=== PATIENT | male | born 1945 | race Caucasian/White ===

== ENCOUNTER 2017-07-04 22:16 | Emergency (ER) | payer BC, MEDICARE ==
[~2017-07-04] VITALS: Ht 185.4 cm; Wt 104.3 kg
[2017-07-04 22:17] VITALS: BP 145/72
--- NOTE | 2017-07-04 22:23 | PCM.EKG ---
[facility] Test Date: 2017-07-04 Test Time: 22:22:20 Pat Name: FERNANDO JAMA Department: Room: Gender: M Weight Tester: BRIANDA : 1945 Requested By: ANNE BURGER Order Number: [id number] Reading MD: Measurements Intervals [place] Rate: 69 P: -19 [place]: 164 QRS: 35 QRSD: 104 T: 64 QT: 448 QTc: 480 Interpretive Statements Normal sinus rhythm Prolonged QT Abnormal ECG No previous ECG available for comparison Please click the below link to view image of tracing.
[2017-07-04 22:31] LABS: BASOPHIL # 0.1 10^3/uL (0.0-0.1); BASOPHIL % 0.7 % (0.0-0.2); EOSINOPHIL # 0.6 10^3/uL (0.0-0.2); EOSINOPHIL % 8.5 % (0.0-5.0); HEMOGLOBIN 13.6 g/dL (13.9-16.3); LYMPHOCYTES # 1.9 10^3/uL (1.0-4.8); LYMPHOCYTES % 26.2 % (24.0-44.0); MEAN CELL HGB 28.8 pg (26-34); MEAN CELL HGB CONCENTRATION 32.9 g/dL (33-37); MEAN CORP VOLUME 87.5 fL (78-100); MEAN PLATELET VOLUME 10.7 fL (7.8-11.0); MONOCYTES # 0.6 10^3/uL (0.3-0.8); MONOCYTES % 9.1 % (5.0-12.0); NEUTROPHIL # 3.9 10^3/uL (1.8-7.7); NEUTROPHILS % 55.4 % (41.0-85.0); RED CELL DISTRIBUTION WIDTH 13.6 % (11.5-14.5); WHITE BLOOD CELL 7.1 10^3/uL (4.5-11.0)
--- NOTE | 2017-07-04 22:34 | ER.PDOC ---
General Chief Complaint: Dizziness Stated Complaint: DIZZY Time seen by MD: 22:33 Source: patient Exam Limitations: no limitations History of Present Illness Initial Comments Dizziness this evening at work. Already feeling better. No chest pain or SOB. Patient has a history of dizziness and takes medication for it. Occurred: just prior to arrival Severity: moderate Usually: walks w/o assistance Worsened By: nothing Allergies: Coded Allergies: No Known Allergies (Unverified , 07/04/17) Past Medical History Medical History: hypertension Surgical History: coronary bypass surgery, renal Social History Smoking: non-smoker Alcohol Use: occassionally Drug Use: none Review of Systems Constitutional: no symptoms reported Mouth: no symptoms reported Throat: no symptoms reported Respiratory: no symptoms reported Cardiovascular: no symptoms reported Gastrointestinal: no symptoms reported All Other Systems: Reviewed and Negative Physical Exam General Appearance: alert, no distress EENT: nml eye inspection Neck: supple Respiratory: no resp distress, breath sounds nml CVS: reg rate & rhythm, heart sounds.nml Abdomen: non-tender, no organomegaly, no distention Skin: color nml, no rash, warm/dry Extremities: non-tender, nml ROM, no pedal edema Neuro/Psych: nml orientation, nml speech/cognition, nml mood/affect Cranial Nerves: nml as tested, no evidence of acute CVA Sensorimotor: nml motor, nml sensation Results/Orders Results/Orders Laboratory Tests Test 07/04/17 22:25 07/04/17 22:31 White Blood Count 7.1 10^3/uL (4.5-11.0) Red Blood Count 4.72 10^6/uL (4.50-5.90) Hemoglobin 13.6 g/dL (13.9-16.3) Hematocrit 41.3 % (37.0-53.0) Mean Corpuscular Volume 87.5 fL (78-100) Mean Corpuscular Hemoglobin 28.8 pg (26-34) Mean Corpuscular Hemoglobin Concent 32.9 g/dL (33-37) Red Cell Distribution Width 13.6 % (11.5-14.5) Platelet Count 199 10^3/uL (150-400) Mean Platelet Volume 10.7 fL (7.8-11.0) Neutrophils (%) (Auto) 55.4 % (41.0-85.0) Lymphocytes (%) (Auto) 26.2 % (24.0-44.0) Monocytes (%) (Auto) 9.1 % (5.0-12.0) Neutrophils # (Auto) 3.9 10^3/uL (1.8-7.7) Lymphocytes # (Auto) 1.9 10^3/uL (1.0-4.8) Monocytes # (Auto) 0.6 10^3/uL (0.3-0.8) Absolute Immature Granulocyte (auto 0.01 10^3 u/L (0-2) Eosinophils % 8.5 % (0.0-5.0) Basophils % 0.7 % (0.0-0.2) Basophils # 0.1 10^3/uL (0.0-0.1) Eosinophil Count 0.6 10^3/uL (0.0-0.2) Sodium Level 139 mmol/L (132-145) Potassium Level 3.7 mmol/L (3.6-5.2) Chloride Level 104.0 mmol/L (96-109) Carbon Dioxide Level 26.5 mmol/L (20.0-32) Anion Gap 12.2 Blood Urea Nitrogen 20 mg/dL (7-18) Creatinine 1.19 mg/dL (0.59-1.40) Estimated GFR () 72.3 (>/=60) BUN/Creatinine Ratio 16.0 Glucose Level 128 mg/dL (70-110) Calcium Level 8.6 mg/dL (8.4-10.5) Total Bilirubin 0.5 mg/dL (0.2-1.0) Aspartate Amino Transf (AST/SGOT) 28 U/L (0-35) Alanine Aminotransferase (ALT/SGPT) 29 U/L (12-78) Alkaline Phosphatase 86 U/L (50-136) Total Creatine Kinase 435 U/L (39-308) Creatine Kinase MB 8.8 ng/mL (0.5-3.6) Troponin I < 0.02 ng/mL (0.00-0.05) Total Protein 8.2 g/dL (6.4-8.2) Albumin 4.0 g/dL (3.4-5.0) Globulin 4.2 Percent Immature Gran (Cell Imm) 0.10 % (0.00-0.50) Influenza Virus Type A Antibody NEGATIVE (NEG) Influenza Virus Type B Antibody NEGATIVE (NEG) Group A Streptococcus Screen NEGATIVE (NEGATIVE) Progress Progress Patient feeling better EKG/XRAY/CT/US EKG Comments: Normal XRAY: chest (No active disease) Course Blood Pressure Systolic: 145 Blood Pressure Diastolic: 72 Blood Pressure Mean: 96 Departure Time of Disposition: 23:25 Disposition: 01 HOME, SELF-CARE Impression: Primary Impression: Dizziness and giddiness Condition: Improved Additional Instructions: Continue home medications F/U with PCP in 2-3 days Duration or Time Spent with Pa: 70 mins TAO,ANNE Partida MD Jul 04, 2017 22:34
--- NOTE | 2017-07-04 22:40 | NUR ---
CT PT TO CT WITH HECTOR, RAD AT THIS TIME
[2017-07-04 22:42] LABS: STREP SCREEN NEGATIVE (NEGATIVE)
--- NOTE | 2017-07-04 22:47 | NUR ---
CT PT BACK FROM CT AT THIS TIME.
[2017-07-04 22:56] LABS: ALANINE AMINOTRANSFERASE(ML) 29 U/L (12-78); ALKALINE PHOSPHATASE 86 U/L (50-136); ASPARTATE AMINO TRANSFERASE 28 U/L (0-35); CALCIUM 8.6 mg/dL (8.4-10.5); CARBON DIOXIDE 26.5 mmol/L (20.0-32); GLUCOSE 128 mg/dL (70-110)
--- NOTE | 2017-07-04 23:06 | DIREP ---
PROCEDURE:CT HEAD OR BRAIN W/O CONTRAST COMPARISON:[facility], CT, CT-CTA HEAD & NECK W/WO CONTRAST, 04/21/2012, 09:[address] head without contrast performed at [facility] on 03/11/2017. [facility], , XRAY CHEST SINGLE VW, 07/04/2017, 10:32 PM. INDICATIONS:Dizziness TECHNIQUE:Axial CT images were obtained from vertex to the skull base without the administration of IV contrast. FINDINGS: VENTRICLES: The ventricles are normal in size and configuration for age. No hydrocephalus. CEREBRUM: Stable arachnoid cyst overlying the high right posterior frontal lobe, measuring 4.6 x 2.6 cm (image 29, series 2). Stable minimal chronic small vessel white matter ischemic changes. No intracranial hemorrhage, mass-effect, or midline shift. No CT evidence of acute infarction. CEREBELLUM: Normal. BRAINSTEM: Normal. BASAL CISTERNS: Normal. SKULL: Normal. No fracture. SINUSES: Stable [id number] mucosal thickening within the bilateral ethmoid air cells and maxillary sinuses with probable small mucous retention cyst in the inferior maxillary sinuses. Paranasal sinuses and mastoid air cells are otherwise clear. No fluid levels. OTHER: No scalp swelling. Stable calcified plaque in the carotid siphons and vertebral arteries. CONCLUSION: 1. No acute intracranial abnormality. There is no significant change as compared with the previous examination. 2. Stable minimal chronic small vessel white matter ischemic changes. 3. Stable arachnoid cyst overlying the posterior/superior right frontal lobe. Dictated by: Jean Vazquez MD on 07/04/2017 at 10:57 PM
--- NOTE | 2017-07-04 23:08 | DIREP ---
PROCEDURE:CHEST 1 VIEW COMPARISON:[facility], CT, CT HEAD BRAIN W/O CONTRAST, 07/04/2017, 10:32 PM. INDICATIONS:dizziness FINDINGS: LUNGS/PLEURA:Mild subsegmental atelectasis in left lung base. Otherwise clear. No focal consolidation, pleural effusion, or pneumothorax. VASCULATURE:Normal. Unremarkable pulmonary vasculature. CARDIAC:Heart size is within normal limits. Postoperative changes of median sternotomy and CABG. MEDIASTINUM:Mildly tortuous calcified thoracic aorta. BONES:Mild degenerative changes involving the left shoulder and thoracic spine. No acute abnormality. OTHER:Multiple small surgical clips within the lower neck. CONCLUSION: 1. Mild left basilar subsegmental atelectasis. The lungs are otherwise clear. 2. Postoperative changes of CABG. 3. Additional findings, as above. Dictated by: Jean Vazquez MD on 07/04/2017 at 11:06 PM
[2017-07-04 23:28] VITALS: BP 143/71
--- NOTE | 2017-07-04 23:35 | NUR ---
IV DC'D IV DC'D CATHETER INTACT
[2017-07-04 23:36] VITALS: BP 143/71
== END 2017-07-04 23:35 | disposition home or self-care (01) ==
LOC: EDBD 22:16 → ER 22:16
DX: R42 Dizziness and giddiness (principal); I10 Essential (primary) hypertension; Z95.1 Presence of aortocoronary bypass graft
CPT/HCPCS: 36415; 70450; 71045; 80053; 82550; 82553; 82948; 84484; 85025; 86710; 87070; 87880; 93005; 99285

== ENCOUNTER 2018-11-19 20:22 | Emergency (ER) | payer BC, MEDICARE ==
[~2018-11-19] VITALS: Ht 185.4 cm; Wt 72.1 kg
[2018-11-19 22:16] VITALS: BP 159/72
--- NOTE | 2018-11-19 22:24 | ER.PDOC ---
General Chief Complaint: Extremities Stated Complaint: R SHOULDER PAIN Time seen by MD: 22:24 Source: patient Exam Limitations: no limitations History of Present Illness Initial Comments 73 Y/O MALE WITH HX OFF AND SHARP PAINS IN RIGHT SHOULDER. CAN BE AT REST OR WHILE WALKING OR USING RIGHT ARM. NO CHEST PAIN, NO FEVER, NO REYNA, NO SOB, PAINS ONLY LAST FOR A FEW MIN. NOT SAME PAIN PAST CARDIAC. Occurred: yesterday Where: other Severity: moderate Modifying Factors: pain on movement Allergies: Coded Allergies: No Known Allergies (Unverified , 07/04/17) Past Medical History Medical History: cardiac problems, high cholesterol, hypertension Surgical History: coronary bypass surgery Family History Significant Family History: no pertinent family hx Social History Smoking: non-smoker Alcohol Use: occassionally Drug Use: none Reviewed Nursing Reviewed: Vital Signs, Abn. Noted, Nursing Assessment Review of Systems Constitutional: no symptoms reported EENTM: no symptoms reported Respiratory: no symptoms reported Cardiovascular: no symptoms reported Gastrointestinal: no symptoms reported Genitourinary: no symptoms reported Musculoskeletal: see HPI, joint pain Skin: no symptoms reported Psychiatric/Neurological: no symptoms reported Physical Exam General Appearance: Alert, No Apparent Distress Hand: nml inspection, non-tender Wrist: nml inspection, non-tender, nml ROM Forearm/Elbow: nml inspection, non-tender, nml ROM Arm/Shoulder: nml inspection, non-tender, nml ROM Neuro/Vasc/Tendon: sensation nml, motor nml, no vascular compromise, tendon function nml Skin: warm/dry Head/ENT: nml inspection, pharynx nml Neck/Back: nml inspection, non-tender Respiratory: chest non-tender, breath sounds nml CVS: heart sounds normal Abdomen: non-tender, no organomegaly Comments RIGHT SHOULDER FULL NL ROM WITH NO PAIN, RIGHT ARM N/V/S INTACT. Results/Orders Results/Orders Orders - KELLY ELY DO Ekg-Routine (11/19/18 22:36) Xr Shoulder Rt 2v (11/19/18 22:36) Vital Signs Date Time Temp Pulse Resp B/P (MAP) Pulse Ox O2 Delivery O2 Flow Rate FiO2 11/19/18 22:16 98.3 74 18 159/72 (101) 96 Room Air 98.3 11/19/18 22:08 98.3 74 18 96 Room Air 98.3 11/19/18 22:08 98.3 74 18 98.3 Progress Progress AT [facility] NO SYMPTOMS, DIFF DX IN DETAIL, FOLLOW UP WITH YOUR ORTHO DR. EKG/XRAY/CT/US EKG: NSR EKG Comments: EKG NSR, RATE-71 , NO ACUTE CHANGES. XRAY Comments: right shoulder no fx, no disloc. Departure Time of Disposition: 00:18 Disposition: 01 HOME, SELF-CARE Impression: Primary Impression: Shoulder pain, acute Condition: Stable Patient Instructions: Shoulder Exercises, Generic, SportsMed Referrals: EDITH BENNETT-Jayme (PCP) PRIMARY CARE PROVIDER SHEKHAR SHETTY MD Additional Instructions: TO ED NEEDED, ICE X 5-7 DAYS, FOLLOW UP WITH ORTHO DR FOR FURTHER EVAL. Duration or Time Spent with Pa: 15 MIN KELLY ELY DO Nov 19, 2018 22:24
--- NOTE | 2018-11-19 22:53 | PCM.EKG ---
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
--- NOTE | 2018-11-19 23:03 | DIREP ---
PROCEDURE:XRAY SHOULDER MIN 2 VWS-RT COMPARISON:None. INDICATIONS:PAIN FINDINGS: BONES:No visible displaced fracture. Small osteophytes at the AC joint. Bones are osteopenic. Median sternotomy changes. JOINTS:Both images are in internal rotation, this precludes evaluation for dislocation. However, if the arm is in the fixed into the rotation on clinical exam in this would indicate anterior glenohumeral dislocation. SOFT TISSUES:Calcified plaque in the aorta. Surgical clips in the lower neck. OTHER:Normal. CONCLUSION:Mild arthropathy and osteopenia. Both images are in internal rotation raising the concern of anterior glenohumeral dislocation. Recommend transscapular Y-view. Dictated by: Lobo Paredes M.D. on 11/19/2018 at 11:00 PM
[2018-11-20 00:30] VITALS: BP 136/72
[2018-11-20 01:34] VITALS: BP 136/72
== END 2018-11-20 00:32 | disposition home or self-care (01) ==
LOC: ER 20:22
DX: M25.511 Pain in right shoulder (principal); E78.00 Pure hypercholesterolemia, unspecified; I10 Essential (primary) hypertension; Z95.1 Presence of aortocoronary bypass graft
CPT/HCPCS: 93005; 99284; 73030-RT